=== PATIENT | male | born 1955 | race Caucasian/White ===

== ENCOUNTER 2018-08-24 07:09 | Inpatient (IN) | payer OTHER ==
[2018-08-12 09:22] LABS: HEMATOCRIT 42.5 % (42.0-52.0); HEMOGLOBIN 14.6 gm/dL (14.0-18.0); MCH 32.4 pg (26.0-34.0); MCHC 34.4 g/dL (28.0-37.0); MCV 94.2 fL (80.0-100.0); MPV 7.3 fl. (7.2-11.1); RBC 4.51 mil/uL (4.50-6.00); RDW-CV 13.5 % (10.5-14.5); WBC 4.8 thou/uL (4.0-11.0)
[2018-08-12 09:24] LABS: URINE BILIRUBIN NEGATIVE (Negative); URINE BLOOD NEGATIVE (Negative); URINE CLARITY CLEAR; URINE COLOR YELLOW; URINE GLUCOSE-RANDOM NEGATIVE (Negative); URINE KETONES NEGATIVE (Negative); URINE LEUKOCYTES-REFLEX NEGATIVE (Negative); URINE NITRITE-REFLEX NEGATIVE (Negative); URINE PROTEIN NEGATIVE (Negative); URINE SPECIFIC GRAVITY <= 1.005 (1.005-1.030); URINE UROBILINOGEN 0.2 E.U./dl (0.2-1.0)
[2018-08-12 09:30] LABS: PROTIME 10.6 Seconds (9.20-11.50)
[2018-08-12 09:35] LABS: ALBUMIN 3.9 g/dL (3.4-5.0); CALCIUM 8.7 mg/dL (8.5-10.1); CREATININE 0.8 mg/dL (0.6-1.3); POTASSIUM 4.5 mmol/L (3.5-5.1); TOTAL BILIRUBIN 0.5 mg/dL (<0.1-1.0); TOTAL PROTEIN 7.5 g/dL (6.4-8.2)
--- NOTE | 2018-08-12 17:40 | EKG ---
[place] [address] ELECTROCARDIOGRAM REPORT Name: ANUSHA VALVERDE Room: PRE IN [facility]#: [id number] Admission: Attend Phys: Antoine Santos Discharge: Date of : 57 Report #: [id number] THIS REPORT FOR: //name// [facility] Test Date: 2018-08-12 Test Time: 09:29:46 Pat Name: ANUSHA VALVERDE Department: Room: Gender: M Employee Health Nurse: : 1955 Requested By: Bay Biswas Order Number: [id number] Reading MD: Johnson Perez Measurements Intervals Omega Rate: 68 P: 64 IN: 171 QRS: -19 QRSD: 100 T: 58 QT: 383 QTc: 408 Interpretive Statements Sinus rhythm Borderline left axis deviation No previous ECG available for comparison Electronically Signed On 08-12-2018 17:40:26 CDT by Johnson Perez [email or web address] <ELECTRONICALLY SIGNED> By: Johnson Perez MD, [facility] 08/12/18 1740 0929 0929 Johnson Perez MD, FACC /EPI
[~2018-08-24] VITALS: Ht 188 cm; Wt 73.0 kg
[~2018-08-24 07:09] MED LIST: IMITREX 25 MG T25 M1 PO; PROPRANOLOL 8080 MG PO; TRAMADOL 50 MG50 MG PO
[2018-08-24 07:52] VITALS: BP 113/75
[2018-08-24 14:30] VITALS: BP 130/71
[2018-08-24 16:01] VITALS: BP 122/73
--- NOTE | 2018-08-24 19:38 | NUR ---
PT VSS THIS SHIFT. DRSG CDI AT THIS TIME HEMEVAC DRAINING WITH NO CONCERNS OR COMPLICATIONS AT THIS TIME. PT TOLERATING DIET AND RA WITH NO C/O NAUSEA OR VOMITTING. PT ABLE TO USE URINAL AFTER A FEW ATTEMPTS. PT OFFERED CPM USE A FEW TIMES BY STAFF MEMBERS THIS SHIFT AND PT REFUSING DUE TO PAIN AT THE TIME, WILL PROVIDE PT WITH MORE PAIN MEDICATIONS ON GROUND CREWMAN AIRCRAFT SUPPORT, GROUND CREWMAN AIRCRAFT SUPPORT AWARE. PT USING POLAR PACK AT THIS TIME. PT HAS CONTACTS IN AND GLASSES AT BEDSIDE. PT USES HEARING AIDS BILATERALLY. WILL SIGN OFF AT THIS TIME.
[2018-08-24 20:15] VITALS: BP 105/66
[2018-08-25] VITALS: BP 103/61
[2018-08-25 04:00] VITALS: BP 122/73
[2018-08-25 05:01] LABS: HEMATOCRIT 32.5 % (42.0-52.0); HEMOGLOBIN 11.5 gm/dL (14.0-18.0)
--- NOTE | 2018-08-25 05:22 | NUR ---
PT SLEPT ON AND OFF THIS SHIFT. ASSESSMENT DOCUMENTED. MEDS GIVEN PER E-MAR. IV PATENT, FLUIDS INFUSING. PAIN MEDS GIVEN PER E-MAY WITH RELIEF. CPM WORN THIS SHIFT ORDERED. PT VOIDING PER URINAL. DRESSING TO KNEE C/D/I. POLAR PACK IN PLACE. WILL CONTINUE WITH PLAN OF CARE.
--- NOTE | 2018-08-25 06:53 | NUR ---
PT ON CPM AT 0650, PT REQUESTED LOWER SETTINGS ON CPM, ADJUSTED TO -5 TO 65. WILL CALL OUT IF NEEDS ADJUSTED AGAIN.
[2018-08-25 09:25] VITALS: BP 123/73
--- NOTE | 2018-08-25 12:54 | NUR ---
RECEIVED O.T. EVAL AND TX ORDERS. WILL DEFER TO P.T. AT THIS TIME. PLEASE ORDER FURTHER O.T. SERVICES IF NEEDED.
[2018-08-25 16:00] VITALS: BP 119/61
--- NOTE | 2018-08-25 16:19 | NUR ---
FOREIGN EXCHANGE STUDENT COORDINATOR SPOKE TO THE PATIENT TO DISCUSS HIS HOME SITUATION, DISCHARGE PLANNING, AND TO INFORM OF THE ROLE OF CM. PATIENT ALERT, ORIENTED, INDEPENDENT, AND WORKS. PATIENT RESIDES AT HOME WITH SPOUSE. PATIENT OWNS A WALKER AND GIOVANNY IT WITH HIM TO THE HOSPITAL TO USE. PATIENT ALSO HAS A STOOL RISE AND SHOWER BENCH AT HOME. PATIENT HAS 0 HX OF HH OF SNF. PATIENT INFORMS THAT HE PLANS TO RETURN HOME AT D/C AND IS OPEN TO HH. CM WILL REMAIN AVIALABLE TO ASSIST AND FOLLOW NEEDED.
--- NOTE | 2018-08-25 19:00 | NUR ---
PATIENT PLEASANT AND COOPERATIVE W/ ASSESS AND CARES. PATIENT STATES PAIN CONTROL BETTER THIS SHIFT, SEE MAR. PATIENT COOPERATIVE W/ THERAPY, CPM USED X2 THIS SHIFT. PRESENT IN RM DURING SHIFT ASSTING W/ PERSONAL CARES. PATIENT UP TO CHAIR X2. YANDY WRAP CHANGED TO RLE AFTER HEMOVAC REMOVED THIS AM. DRSG TO RT KNEE SURGICAL SITE NOTED CDI. HEMOVAC REMOVAL SITE NOTED WNL. IV SL THIS SHIFT, PATIENT DENIES N/V, EATING WELL. PATIENT NOTED RESTING QUIETLY IN BED W/ EYES CLOSED, RESPS EVEN AND UNLABORED. HRLY ROUNDS COMPLETED. ~TJRN
[2018-08-25 20:35] VITALS: BP 124/65
[2018-08-26 03:42] LABS: HEMATOCRIT 34.3 % (42.0-52.0); HEMOGLOBIN 11.8 gm/dL (14.0-18.0)
--- NOTE | 2018-08-26 05:10 | NUR ---
PT REMAINED ALERT AND ORIENTED. VITALS STABLE RA. MED GIVEN ORDERED. PAIN CONTROLLED WITH OXY IR. NO NAUSEA OR VOMITING. DRESSING ON LT KNEE CLEAN AND DRY. PT REFUSED CPM HS, BUT STATED HE WILL BE ON IT EARLY IN THE MORNING INSTEAD. TEDS, SCDS AND POLAR CARE IN PLACE. HOURLY ROUNDING COMPLETED. WILL CONTINUE TO MONITOR.
[2018-08-26 07:25] VITALS: BP 119/74
--- NOTE | 2018-08-26 09:12 | NUR ---
UP AMB IN HALLS W/ PHYSICAL THERAPY. WALKER AND GAIT BELT ON. ~TJRN
[2018-08-26] MEDS ORDERED: PERCOCET PO (11:47)
[2018-08-26] MEDS ORDERED: XARELTO10 MG PO (11:48)
[2018-08-26 11:50] VITALS: BP 119/74
[2018-08-26 15:00] VITALS: BP 119/74
--- NOTE | 2018-08-26 15:02 | NUR ---
CLINICAL DATA MANAGEMENT DIRECTOR SPOKE TO THE PATIENT TO DISCUSS DISCHARGE PLANNINGN NEEDS AND HH AT D/C. PATIENT IN AGREEMENT AND ACCEPTS HH WITH [facility] PER PHYSICIANS RECOMMENDATION. D/C TRADING FLOOR OPERATOR SPOKE TO [facility] TO INFORM OF THE REFERRAL FOR HH AND FAXED THE PATIENT'S FACESHEET, H&P, AND D/C ORDERS. PATIENT TO D/C HOME TODAY WITH TRANSPORTATION PROVIDED BY SPOUSE. CM WILL REMAIN AVAILABLE TO ASSIST AND FOLLOW NEEDED. [facility] PHONE: [phone] FAX: [phone]
--- NOTE | 2018-08-26 15:45 | NUR ---
DISCHARGE TO HOME. PATIENT PLEASANT AND COOPERATIVE THIS SHIFT. DISCHARGE INSTRUCTIONS REVIEWED W/ PATIENT W/ PRESENT. SCRIPTS AND COPY OF DISCHARGE INSTRUCTIONS GIVEN TO . BELONGINGS GATHERED PER W/ ASST OF NURSING FOR CPM, WALKER AND POLAR PACK. IV CATH DISCONTINUED, TIP INTACT, COTTON BALL/TAPE TO SITE. PATIENT INSTRUCTED D/T BLOOD THINNER TO WATCH FOR BLEEDING. SURGICAL DRSG NOTED CDI. THIGH HIGH TEDS ON BLE. PATIENT ESCORTED TO AWAITING VEHICLE PER WC W/ NURSING AND DIRECTOR SAFETY PRESENT. PATIENT/ INSTRUCTED TO CALL HH AGENCY IF THEY ARE NOT CONTACTED BY TOMORROW AFTERNOON. PATIENT DENIES OTHER NEEDS AT TIME OF DISCHARGE. ~TJRN
--- NOTE | 2018-08-30 10:02 | H ---
[address] [address] HISTORY AND PHYSICAL Name: ANUSHA VALVERDE Room: [address]R.#: [id number] Admission: 08/24/18 Attend Phys: Antoine Santos Discharge: 08/26/18 Date of : 57 Report #: [id number] THIS REPORT FOR: //name// CC: Sebastián Darby DATE OF SERVICE: 08/24/2018 CHIEF COMPLAINT: "I here because of my left knee." HISTORY OF PRESENT ILLNESS: The patient is a 63-year-old gentleman who is pretty healthy who presented to us here post-surgery. He has left knee osteoarthritis, has been dealing with and underwent a left total knee arthroplasty by Dr. Bay Biswas. He has had history of bilateral knee pain and arthroscopies in the past. He denies any chest pain. He does have history of migraine, but no current headache. No shortness of breath. His pain is tolerable and he just got pain meds. PAST MEDICAL HISTORY: Migraine headache and knee problems. PAST SURGICAL HISTORY: Arthroscopies of bilateral knee. FAMILY HISTORY: Mother having hypertension, history of blood clots. SOCIAL HISTORY: The patient is , lives with . He is a director database, social work specialist. He denies any smoking, alcohol or illicit drug use. ALLERGIES: No drug allergies. HOME MEDICATIONS: Include tramadol and propranolol. REVIEW OF SYSTEMS: The patient denies any fever, chills, cough or cold symptoms. Denies any chest pain, shortness of breath, no nausea, no vomiting, no abdominal pain, diarrhea or constipation. No headache. His pain is controlled currently on his knee. A 12-point review of system unremarkable as are mentioned above. PHYSICAL EXAMINATION: VITAL SIGNS: Temperature is 37, heart rate of 72, respiratory rate 17, blood pressure 122/73, 99% on room air. GENERAL: The patient is alert. He is oriented x 3, not in acute respiratory distress. HEENT: Normocephalic, atraumatic. Nares patent. Clear oropharynx. NECK: Supple. No lymphadenopathy. CARDIOVASCULAR: Normal rate, regular rhythm. [place] [address] HISTORY AND PHYSICAL Name: ANUSHA VALVERDE Room: [address]#: [id number] Admission: 08/24/18 Attend Phys: Antoine Santos Discharge: 08/26/18 Date of : 57 Report #: [id number] RESPIRATORY: Clear to auscultation bilaterally, no wheeze, no crackles. GASTROINTESTINAL: Abdomen is soft, nontender, nondistended, positive bowel sounds. No organomegaly. GENITOURINARY: Deferred. MUSCULOSKELETAL: Fair strength. NEUROLOGIC: Grossly normal. PSYCHIATRIC: The patient is calm and cooperative. LABORATORY DATA: Reviewed and CBC showed hemoglobin 11.5, hematocrit 32.5 down from 14.6 on 08/12. INR is 1. Chemistry showed a sodium 135, BUN is 25, creatinine is 0.8. UA is negative. IMPRESSION: The patient is a 63-year-old gentleman who presented to us here secondary to: 1. Primary osteoarthritis of the left knee, status post surgery. 2. Known history of migraine, currently, headache free. PLAN: The patient is currently admitted. I expect this patient is going to be here more than 2 midnights for continued therapy. Continue with his Xarelto for DVT prophylaxis and will have PT and OT, plans to go home. I did resume the patient's home medications. We will follow along. <ELECTRONICALLY SIGNED> By: Aziza Morgan MD 08/30/18 1002 1504 [id number] Morgan MD /nt
--- NOTE | 2018-08-30 11:13 | D ---
[address] [address] DISCHARGE SUMMARY Name: ANUSHA VALVERDE Fozia Room: [address] IN .R.#: [id number] Admission: 08/24/18 Attend Phys: Antoine Santos Discharge: 08/26/18 Date of : 57 Report #: [id number] THIS REPORT FOR: //name// CC: Sebastián Leal DO Bay Biswas II DO Raghu Darby DATE OF SERVICE: 08/26/2018 DISCHARGE DIAGNOSES: 1. Primary osteoarthritis of the left knee and status post left total knee arthroplasty. 2. Major migraine without any exacerbation. COURSE IN THE HOSPITAL: The patient is a 63-year-old gentleman who has a history of osteoarthritis, who was admitted and had a surgery under Dr. Biswas on 08/24/2018. He underwent left total knee arthroplasty. Postop, he was doing well. He does have a history of migraine, which he did not have an exacerbation during his hospital stay. He is doing well. His hemoglobin did go down, but has been stable for the last two days. He will then be discharged to home with home health if okay with Orthopedics. DISCHARGE PHYSICAL EXAMINATION: VITAL SIGNS: Temperature is 37.2, heart rate 90, respiratory rate is 20, blood pressure is 119/74, 99% on room air. GENERAL: The patient is alert. He is oriented x 3, not in acute respiratory distress. HEENT: Normocephalic, atraumatic. Nares patent, clear oropharynx. NECK: Supple. No lymphadenopathy. CARDIOVASCULAR: Regular rate and rhythm. No murmurs. RESPIRATORY: Clear to auscultation bilaterally. No wheezes or crackles. GASTROINTESTINAL: Abdomen soft, nontender, nondistended, good bowel sounds. No organomegaly. GENITOURINARY: Deferred. MUSCULOSKELETAL: Full strength. He does have an Nelson wrap on the left knee. PSYCHIATRIC: The patient is calm and cooperative. DISPOSITION: The patient will be discharged to home with home health, PT, OT and nursing and follow up with PCP in 3-5 days, order per them. Notify physician if there is a fever of more than 38, incision with foul smelling drainage and red swollen, painful, and/or hard. DIET: [place] [address] DISCHARGE SUMMARY Name: ANUSHA VALVERDE Fozia Room: [address]#: [id number] Admission: 08/24/18 Attend Phys: Antoine Santos Discharge: 08/26/18 Date of : 57 Report #: [id number] ACTIVITY: Resume activity per Ortho. DISCHARGE MEDICATIONS: 1. Ortho has given a prescription for Xarelto 1 tab p.o. daily x 12 days and Percocet one to two tabs every 4-6 hours in 7 days. 2. Sumatriptan 25 mg daily p.r.n., tramadol 50 mg q.6h. as needed. Spent 32 minutes of time with this patient today. <ELECTRONICALLY SIGNED> By: Aziza Morgan MD 08/30/18 1113 1046 03Aziza Morgan MD /nt
--- NOTE | 2018-08-30 14:57 | OP ---
[facility] [address] [place] [address] OPERATIVE REPORT Name: VALVERDEANUSHA Fozia Room: [address]R.#: [id number] Admission: 08/24/18 Attend Phys: Antoine Santos Discharge: 08/26/18 Date of : 57 Report #: [id number] THIS REPORT FOR: //name// CC: Sebastián Darby DATE OF SERVICE: 08/24/2018 PREOPERATIVE DIAGNOSIS: Left knee osteoarthritis. POSTOPERATIVE DIAGNOSIS: Left knee osteoarthritis. PROCEDURE: Left total knee arthroplasty. SURGEON: Bay Biswas II, DO. DAIRY WORKER: ADONAY Blanco. ANESTHESIA: General endotracheal. ESTIMATED BLOOD LOSS: 50 mL. ANTIBIOTICS: Ancef preoperatively. DRAINS: Medium Hemovac. COMPLICATIONS: None. CONDITION OF THE PATIENT: Stable to recovery room. IMPLANTS: Listed in the operative record and progress note. BRIEF HISTORY: The patient was seen in the preoperative area. Preoperative H and P was performed. Site was marked, questions were answered. Risks and benefits were discussed with the patient in detail about the surgery. The patient wished to proceed, assuming all risks. DESCRIPTION OF PROCEDURE: The patient was taken to the operative suite, placed supine on the operating table and given appropriate anesthesia. The patient had a well-padded tourniquet applied to the upper thigh, which was inflated to 300 mmHg after gravity exsanguination. The operative knee was sterilely prepped and draped. Surgery began by midline incision. This was carried down to the skin and subcutaneous tissues. A medial parapatellar arthrotomy was performed and carried down to the bone. The patella was then everted and excess osteophytes were removed from around the femur. Two femoral alignment pins were placed as [facility] [address] [place] [address] OPERATIVE REPORT Name: ANUSHA VALVERDE Room: [address]#: [id number] Admission: 08/24/18 Attend Phys: Antoine Santos Discharge: 08/26/18 Date of : 57 Report #: [id number] well as two tibial tracker alignment pins were placed. The tracker array was then applied and the knee was registered through the Plink Search software. The robot was activated and appropriate drill holes were placed along the femur and the tibia with the robotic cutting handpiece. The guides were then placed and femoral cut was made. A 4-in-1 cutting block was then applied to check for rotational alignment, pinned in appropriate position and appropriate cuts were made. The tibia was then exposed and excess meniscus was removed. Retractor was placed on the collateral ligaments. Tibial cutting block was then applied, pinned in appropriate position, checked with the drop khang and Navio robotic assistance for appropriate rotational alignment and slope and appropriate cut was made. The tibial bone was removed. The tibial base plate was then applied and checked for rotational alignment with the drop khang and pinned in appropriate position. The femur was then applied and box cut was reamed. This was then trialed with the appropriate spacer, which showed excellent fit and fill and excellent stability of the knee through all range of motion. The patella was reamed in appropriate fashion and sized for appropriate size. Three peg holes were drilled. It was then trialed and showed excellent flexion and extension and excellent tracking of the patella from the groove. These trials were then removed. The tibia was punched in appropriate fashion. Bone ends were cleansed with Pulsavac irrigation. Cement was mixed and applied to the final implants. These were then malleted in position, held the knee in extension and compressed to allow the cement to cure. After it cured, excess was removed utilizing a [place] and osteotome. The wound was then copiously irrigated and the final spacer was then malleted into position. Utilizing the Navio software, this was shown to have excellent reduction of the knee in the normal anatomic alignment and full range of motion, both with flexion and extension. The tourniquet was deflated. Hemostasis was obtained with electrocautery. The pain cocktail was injected. PRP gel sprayed throughout the internal aspects of the knee. Medium Hemovac drain was then applied. Capsule was closed with #2 FiberWire and #1 Vicryl in avdqcy-mk-kxasd fashion. Skin was closed with 2-0 Vicryl and running 3-0 Monocryl. Tracker pins were removed and closed with nylon stitch. Dermabond and sterile dressing were applied. Nelson wrap and PolarCare applied. The patient transported to the recovery room in stable condition. Counts were correct throughout the procedure. <ELECTRONICALLY SIGNED> By: Bay Biswas II, DO 08/30/18 1457 0759 1045Bay Biswas II, DO /nt
== END 2018-08-26 15:45 | disposition home health service (06) | DRG 470 ==
LOC: M.ORTHSURG 07:09 → M.TBA 07:09 → M.PRE 09:14 → M.ORTHSURG 12:20 → M.PRE 14:51 → M.ORTHSURG 08-26 15:45
PROVIDERS: Orthopaedic Surgery; ADMIT Internal Medicine
PROC: 0SRD0J9 Replacement of Left Knee Joint with Synthetic Substitute, Cemented, Open Approach (ICD-10-PCS; principal; 2018-08-24)
DX: M17.12 Unilateral primary osteoarthritis, left knee (principal); G43.909 Migraine, unspecified, not intractable, without status migrainosus; Z82.49 Family history of ischemic heart disease and other diseases of the circulatory system; Z83.2 Family history of diseases of the blood and blood-forming organs and certain disorders involving the immune mechanism; Z79.899 Other long term (current) drug therapy

== ENCOUNTER 2018-10-12 06:59 | Inpatient (IN) | payer OTHER ==
[2018-09-30 09:22] LABS: HEMATOCRIT 40.3 % (42.0-52.0); HEMOGLOBIN 13.8 gm/dL (14.0-18.0); MCHC 34.1 g/dL (28.0-37.0); MCV 93.8 fL (80.0-100.0); MPV 6.9 fl. (7.2-11.1); RBC 4.3 mil/uL (4.50-6.00); RDW-CV 13.3 % (10.5-14.5); WBC 4.1 thou/uL (4.0-11.0)
[2018-09-30 09:25] LABS: URINE BILIRUBIN NEGATIVE (Negative); URINE BLOOD NEGATIVE (Negative); URINE CLARITY CLEAR; URINE COLOR YELLOW; URINE GLUCOSE-RANDOM NEGATIVE (Negative); URINE KETONES NEGATIVE (Negative); URINE LEUKOCYTES-REFLEX NEGATIVE (Negative); URINE NITRITE-REFLEX NEGATIVE (Negative); URINE PROTEIN NEGATIVE (Negative); URINE SPECIFIC GRAVITY 1.015 (1.005-1.030); URINE UROBILINOGEN 0.2 E.U./dl (0.2-1.0)
[2018-09-30 09:26] LABS: PROTIME 10.7 Seconds (9.20-11.50)
[2018-09-30 09:30] LABS: ALBUMIN 3.5 g/dL (3.4-5.0); CALCIUM 8.8 mg/dL (8.5-10.1); CREATININE 0.8 mg/dL (0.6-1.3); POTASSIUM 4.7 mmol/L (3.5-5.1); TOTAL BILIRUBIN 0.4 mg/dL (<0.1-1.0); TOTAL PROTEIN 7.2 g/dL (6.4-8.2)
[~2018-10-12] VITALS: Ht 188 cm; Wt 72.6 kg
[~2018-10-12 06:59] MED LIST changes: +METHOCARBAMOL500 M2 PO; +PERCOCET PO; +XARELTO10 MG PO
[2018-10-12 13:09] VITALS: BP 143/86
[2018-10-12 18:22] VITALS: BP 117/71
--- NOTE | 2018-10-12 18:35 | NUR ---
PT ADMITTED TO UNIT WITH RT KNEE REPLACEMENT. PT ON ROOM AIR. PULSES 2+. DRESSING RT KNEE C/D/I. POLAR PACK IN PLACE. HEMOVAC IN PLACE. SCD FEET. CPM IN ROOM. RUBY HOSE ON LT LEG. PT VOIDED IN PACU. FALL RISK PRECAUTIONS IN PLACE. HOURLY ROUNDING COMPLETED. WILL CONTINUE TO MONITOR.
[2018-10-12 20:00] VITALS: BP 120/71
[2018-10-13] VITALS: BP 143/86
[2018-10-13 03:48] LABS: HEMOGLOBIN 12.5 gm/dL (14.0-18.0)
[2018-10-13 04:30] VITALS: BP 123/82
--- NOTE | 2018-10-13 06:50 | NUR ---
PATIENT SLEPT PART OF THE NIGHT. PATIENT WAS GIVEN PAIN MEDICINE ABOUT EVERY FOUR HOURS. DRESSING TO R KNEE REMAINS INTACT. PATIENT DID HIS CPM TWICE THIS SHIFT. WILL CONTINUE TO MONITOR.
[2018-10-13 07:30] VITALS: BP 135/86
--- NOTE | 2018-10-13 12:00 | NUR ---
CM MET WITH PT.AND . HIS WILL BE WITH HIM AT DISCHARGE. HE HAD HIS OTHER KNEE REPLACED IN AUGUST AND FELT HE DID WELL. HE HAS A FRONT WHEEL WALKER IN ROOM FROM HOME. HE USED [facility] FOR LAST KNEE AND WOULD LIKE TO USE THEM AGAIN. WILL HAVE APPLICATION DEVELOPMENT INTERN FAX REFERRAL AND DISCHARGE ORDERS TO [facility]. SEDA CALLED IN XARELTO PRESCRIPTION WRITTEN TO PT.'S PHARMACY[facility] ON [facility] IN [place]. COPAY IS $0 AND PT.INFORMED. HE SAID HE WAS ON A MUSCLE RELAXANT AT HOME AND THEY ARE GIVING IT TO HIM HERE. ONLY SEVERAL LEFT AT HOME AND WAS WONDERING IF HAD LEFT A PRESCRIPTION FOR HIM. SPOKE WITH DORIS ASTORGA. TOLD PT.TO CALL 'S OFFICE WHEN HE NEEDED REFILL. HE WAS AGREEABLE. SAID HIS F/U APPT.IS OCT.27 WITH . PT.PLANNING ON DISCHARGING THIS AFTERNOON.
[2018-10-13 12:39] VITALS: BP 135/86
[2018-10-13] MEDS ORDERED: COLACE 100 MG100 MG PO (13:19)
[2018-10-13] MEDS ORDERED: XARELTO10 MG PO (13:21)
[2018-10-13] MEDS ORDERED: AMBIEN 5 MG TABL5 M1 PO (13:21)
[2018-10-13 13:26] VITALS: BP 135/86
--- NOTE | 2018-10-13 13:28 | NUR ---
HAT TRIMMER INFORMED THAT PATIENT WILL D/C HOME TODAY WITH [facility]. D/C BOTTOM PAINTER CONTACTED [facility] TO INFORM OF THE HH REFERRAL AND FAXED THE PATIENT'S FACESHEET, H&P, AND D/C ORDERS TO [facility]. [facility] TO CONTACT THE PATIENT TO ARRANGE TIME TO VISIT. CM WILL REMAIN AVAILABLE TO ASSIST AND FOLLOW NEEDED.
--- NOTE | 2018-10-13 14:30 | NUR ---
ASSUMED CARE OF PATIENT AT APPROX 0730. ALERT AND ORIENTED X4. ASSESSMENT COMPLETED AND CHARTED. VSS ON ROOM AIR. PAIN MANAGED WITH ORAL PAIN MEDICATION. ANTIBIOTICS INFUSED ORDERED. PATIENT WORKED WITH THERAPIES AND PROGRESSED TOWARD GOALS. PATIENT DISCHARGED AT 1425 WITH ALL PERSONAL BELONGINGS, PRESCRIPTIOINS AND DISCHARGE INFORMATION.
--- NOTE | 2018-10-13 16:37 | NUR ---
RECIEVED O.T. EVAL AND TX ORDERS. WILL DEFER TO P.T. AT THIS TIME. PLEASE ORDER FURTHER O.T. SERVICES IF NEEDED.
--- NOTE | 2018-10-14 23:33 | OP ---
[facility] [place] [address] [place] [address] OPERATIVE REPORT Name: ANUSHA VALVERDE Room: [address] IN M.R.#: [id number] Admission: 10/12/18 Attend Phys: Antoine Santos Discharge: 10/13/18 Date of : 57 Report #: [id number] THIS REPORT FOR: //name// CC: Sebastián Darby DATE OF SERVICE: 10/12/2018 PREOPERATIVE DIAGNOSIS: Right knee osteoarthritis. POSTOPERATIVE DIAGNOSIS: Right knee osteoarthritis. PROCEDURE: Right total knee arthroplasty. SURGEON: Bay Biswas DO. SERVICES DELIVERY DRIVER: ADONAY Blanco. ANESTHESIA: General endotracheal. ESTIMATED BLOOD LOSS: 50 mL. ANTIBIOTICS: Ancef preoperatively. DRAINS: Medium Hemovac. COMPLICATIONS: None. CONDITION: The patient is stable to recovery room. IMPLANTS: Listed in operative record and progress note. BRIEF HISTORY: The patient is seen in preoperative area. Preoperative H and P was performed. Site was marked, questions were answered. Risks and benefits were discussed with the patient in detail about surgery. The patient wished to proceed, assuming all risks. DESCRIPTION OF PROCEDURE: The patient was taken to the operative suite and placed supine on the operative table and given appropriate anesthesia. A well-padded tourniquet applied to upper thigh, was inflated to 300 mmHg after gravity exsanguination. The operative knee was sterilely prepped and draped. Surgery began by midline incision. This was carried down to the subcutaneous tissues. A medial parapatellar arthrotomy was performed and carried down to bone. Patella was then everted and excess bone and osteophytes were removed from around the femur and tibia. At this time, the alignment guides for the [address] [address] OPERATIVE REPORT Name: ANUSHA VALVERDE Room: [address] IN [facility].#: [id number] Admission: 10/12/18 Attend Phys: Antoine Santos Discharge: 10/13/18 Date of : 57 Report #: [id number] Navio robotic assistance were applied to the tibia and femur. The tracker arrays were registered through the software and the robotic handpiece was activated after appropriate cuts were confirmed. Right hand piece was utilized to create the tracker sites for the cutting guides in the femur and the tibia. The femoral cutting block was then applied, checked with a drop khang for rotational alignment, pinned into appropriate position and appropriate cuts were made. A 4-in-1 cutting block was then applied, checked for rotational alignment with the Navio software in appropriate position and appropriate cuts were made. The tibia was exposed. Excess meniscus was removed. Retractor was placed along the collateral ligaments. The tibial cutting block was then applied, checked with robotic assistance after being pinned in position for appropriate rotational alignment and slope and appropriate cut was made. The tibial bone was removed. Tibial base plate was then applied, checked for rotational alignment with the drop khang. The femur was then applied and box cut was reamed, this was then trialed with appropriate spacer, which showed excellent fit and fill and excellent stability of the knee through all range of motion. The patella was then reamed in appropriate fashion and sized to appropriate size. Three peg holes were drilled. It was then trialed and showed excellent flexion, extension, excellent tracking of the patella within the groove. These trials were removed. The tibia was punched in appropriate fashion. Bone ends were cleansed with Pulsavac irrigation and cement was mixed and applied to final implants were then malleted into position and held the knee in extension and compressed to allow it to cure. After it cured, excess cement was removed utilizing a [place] and osteotome. Wound was then copiously irrigated and the final spacer was malleted into position. Tourniquet was deflated. Hemostasis was maintained with electrocautery. Pain cocktail was injected. PRP gel was sprayed throughout internal aspects of the knee. Medium Hemovac drain was applied. Capsule was closed with #2 FiberWire and #1 Vicryl in nxctiq-qd-itgky fashion. Skin was closed with 2-0 Vicryl and running 3-0 Monocryl. Dermabond and sterile dressing applied. Nelson wrap and PolarCare applied. The patient transported to recovery room in stable condition. Counts were correct throughout the procedure. <ELECTRONICALLY SIGNED> By: Bay Biswas II, DO 10/14/18 2333 0807 [id number] Biswas II, DO /nt
== END 2018-10-13 14:25 | disposition home health service (06) | DRG 470 ==
LOC: M.PRE 06:59 → M.ORTHSURG 11:26 → M.TBA 11:26 → M.PRE 15:34 → M.ORTHSURG 17:49
PROVIDERS: Orthopaedic Surgery; ADMIT Internal Medicine
PROC: 8E0Y0CZ Robotic Assisted Procedure of Lower Extremity, Open Approach (ICD-10-PCS; principal; 2018-10-12)
PROC: 0SRC0J9 Replacement of Right Knee Joint with Synthetic Substitute, Cemented, Open Approach (ICD-10-PCS; principal; 2018-10-12)
DX: M17.11 Unilateral primary osteoarthritis, right knee (principal); G43.909 Migraine, unspecified, not intractable, without status migrainosus; Z96.652 Presence of left artificial knee joint; Z94.7 Corneal transplant status; Z79.899 Other long term (current) drug therapy